=== PATIENT | female | born 1990 | race American Indian/Alaskan Native ===

== ENCOUNTER 2017-05-10 11:37 | Emergency (ER) | payer MEDICAID ==
[2017-05-10 11:55] VITALS: RESP 18
[2017-05-10] MEDS ORDERED: Sodium Chloride 0.9% 1,000 ML IV STA (12:05)
[2017-05-10 12:50] LABS: URINE BILIRUBIN NEGATIVE (NEGATIVE); URINE BLOOD NEGATIVE (NEGATIVE); URINE GLUCOSE (UA) NEGATIVE (NEGATIVE); URINE LEUKOCYTE ESTERASE NEGATIVE Leu/uL (NEGATIVE); URINE NITRATE NEGATIVE (NEGATIVE); URINE PROTEIN NEGATIVE mg/dL (<30 mg/dL); URINE UROBILINOGEN 0.2 E.U./dL (<1 E.U./dL)
[2017-05-10 12:51] LABS: BASO # 0.01 K/mm3 (0.0-2.0); BASO % 0.3 % (0.0-3.0); GRAN # 2.19 (1.4-6.5); GRAN % 57.3 % (50.0-68.0); LYMPH # 1.2 (1.2-3.4); LYMPH % 31.2 % (22.0-35.0); MEAN CELL VOLUME 73.1 fl (80.0-105.0); MEAN CORPUSCULAR HEMOGLOBIN 22.6 pg (25.0-35.0); MEAN CORPUSCULAR HGB CONC 30.9 g/dl (31.0-37.0); MEAN PLATELET VOLUME 9.2 fl (7.0-11.0); MONO # 0.4 (0.1-0.6); MONO % 10.2 % (1.0-6.0); RBC 4.43 10^6/uL (3.5-6.1); RED CELL DISTRIBUTION WIDTH 14.6 % (11.5-14.5); WHITE BLOOD COUNT 3.8 10^3/ul (4.5-11.0)
[2017-05-10 12:58] LABS: URINE APPEARANCE CLEAR (CLEAR); URINE COLOR YELLOW (YELLOW)
[2017-05-10 13:02] LABS: ALB/GLOB RATIO 1.3 (1.1-1.8); ALBUMIN 3.8 g/dL (3.0-4.8); ALT/SGPT 27 U/L (7-56); AST/SGOT 19 U/L (14-36); BLOOD UREA NITROGEN 7 mg/dL (7-21); CALCIUM 8.4 mg/dL (8.4-10.5); GFR AFRICAN-AMERICAN > 60; GFR NON-AFRICAN AMERICAN > 60; LIPASE 43 U/L (23-300)
[2017-05-10 13:19] VITALS: TEMP 98.5
--- NOTE | 2017-05-10 14:03 | ED PDOC ---
Arrival/HPI - General Chief Complaint: GI Problem Time Seen by Provider: 05/10/17 12:05 Historian: Patient - History of Present Illness Narrative History of Present Illness (Text): 05/10/17 12:10 Brett Lowery is a 26 year old who presents to the emergency department complaining of mild nausea and non-bloody diarrhea today. Patient denies any vomiting, change in PO, fever, sick contact, recent travels, or any other complaints at this time. Time/Duration: 4-6 hours Symptom Onset: Gradual Symptom Course: Unchanged Severity Level: Mild Activities at Onset: Light Context: Home Past Medical History - Provider Review Nursing Documentation Reviewed: Yes - Infectious Disease Hx of Infectious Diseases: None - Psychiatric Hx Substance Use: No - Surgical History Hx Section: Yes (x1) Family/Social History - Physician Review Nursing Documentation Reviewed: Yes Family/Social History: No Known Family HX Smoking Status: Light Smoker < 10 Cigarettes Daily Hx Alcohol Use: Yes Frequency of alcohol use: Socially Hx Substance Use: No Allergies/Home Meds Allergies/Adverse Reactions: Allergies No Known Allergies Allergy (Verified 05/10/17 11:55) Home Medications: Home Meds Medication Instructions Recorded Confirmed No Known Home Med 05/10/17 05/10/17 Review of Systems - Physician Review All systems were reviewed & negative as marked: Yes - Review of Systems Constitutional: absent: Fevers, Night Sweats Eyes: absent: Vision Changes ENT: absent: Hearing Changes Respiratory: absent: SOB, Cough Cardiovascular: absent: Chest Pain Gastrointestinal: Diarrhea, Nausea. absent: Abdominal Pain, Vomiting Genitourinary Female: absent: Dysuria, Frequency Musculoskeletal: absent: Arthralgias, Back Pain Skin: absent: Rash, Pruritis Neurological: absent: Headache, Dizziness Endocrine: absent: Diaphoresis Hemo/Lymphatic: absent: Adenopathy Psychiatric: absent: Anxiety, Depression Physical Exam Vital Signs Reviewed: Yes Vital Signs Temp Pulse Resp BP Pulse Ox 05/10/17 14:16 75 18 111/65 100 05/10/17 12:05 98.5 F 77 18 130/86 97 05/10/17 11:52 98.3 F 86 18 113/70 99 Temperature: Afebrile Blood Pressure: Normal Pulse: Regular Respiratory Rate: Normal Appearance: Positive for: Well-Appearing, Non-Toxic, Comfortable Pain Distress: None Mental Status: Positive for: Alert and Oriented X 3 - Systems Exam Head: Present: Atraumatic, Normocephalic Pupils: Present: PERRL Extroacular Muscles: Present: EOMI Conjunctiva: Present: Normal Mouth: Present: Moist Mucous Membranes Neck: Present: Normal Range of Motion Respiratory/Chest: Present: Clear to Auscultation, Good Air Exchange. No: Respiratory Distress, Accessory Muscle Use Cardiovascular: Present: Regular Rate and Rhythm, Normal S1, S2. No: Murmurs Abdomen: Present: Normal Bowel Sounds. No: Tenderness, Distention, Peritoneal Signs Back: Present: Normal Inspection Upper Extremity: Present: Normal Inspection. No: Cyanosis, Edema Lower Extremity: Present: Normal Inspection. No: Edema Neurological: Present: GCS=15, CN II-XII Intact, Speech Normal Skin: Present: Warm, Dry, Normal Color. No: Rashes Psychiatric: Present: Alert, Oriented x 3, Normal Insight, Normal Concentration Medical Decision Making ED Course and Treatment: 05/10/17 14:04 Impression: 26 year old female complaining of mild nausea and non-bloody diarrhea today. Plan: -- Urine Culture -- Pepcid, Zofran, and IV fluids -- Reassess and disposition Progress Notes: - Lab Interpretations Lab Results: 05/10/17 12:38 05/10/17 12:38 Lab Results 05/10/17 12:40: Urine Color Yellow, Urine Appearance Clear, Urine pH 6.0, Ur Specific [place] 1.025, Urine Protein Negative, Urine Glucose (UA) Negative, Urine Ketones Negative, Urine Blood Negative, Urine Nitrate Negative, Urine Bilirubin Negative, Urine Urobilinogen 0.2, Ur Leukocyte Esterase Negative 05/10/17 12:38: Sodium 140, Potassium 3.8, Chloride 106, Carbon Dioxide 22, Anion Gap 15, BUN 7, Creatinine 0.5 L, Est GFR ( Amer) > 60, Est GFR (Non -Af Amer) > 60, Random Glucose 83, Calcium 8.4, Total Bilirubin 0.2, AST 19, ALT 27, Alkaline Phosphatase 53, Total Protein 6.8, Albumin 3.8, Globulin 3.0, Albumin/Globulin Ratio 1.3, Lipase 43 05/10/17 12:38: WBC 3.8 L, RBC 4.43, Hgb 10.0 L, Hct 32.4 L, MCV 73.1 L, MCH 22.6 L, MCHC 30.9 L, RDW 14.6 H, Plt Count 217, MPV 9.2, Gran % 57.3, Lymph % ( Auto) 31.2, [place] % (Auto) 10.2 H, Eos % (Auto) 1.0 L, Baso % (Auto) 0.3, Gran # 2.19, Lymph # 1.2, [place] # 0.4, Eos # 0.0, Baso # 0.01 I have reviewed the lab results: Yes - Medication Orders Current Medication Orders: Discontinued Medications Famotidine (Pepcid) 20 mg IVP STAT STA Stop: 05/10/17 12:06 Last Admin: 05/10/17 12:48 Dose: 20 mg IVP Administration Document 05/10/17 12:48 RG (Rec: 05/10/17 12:51 [id number] Charges for Administration # of IVP Administrations 1 Sodium Chloride (Sodium Chloride 0.9%) 1,000 mls @ 1,000 mls/hr IV .Q1H STA Stop: 05/10/17 13:04 Last Admin: 05/10/17 12:51 Dose: 1,000 mls/hr eMAR Start Stop Document 05/10/17 12:51 RG (Rec: 05/10/17 12:51 [id number]) Intravenous Solution Start Date 05/10/17 Start Time 12:51 Ondansetron HCl (Zofran Inj) 4 mg IVP STAT STA Stop: 05/10/17 12:06 Last Admin: 05/10/17 12:52 Dose: 4 mg IVP Administration Document 05/10/17 12:52 RG (Rec: 05/10/17 12:52 [id number]) Charges for Administration # of IVP Administrations 1 - Scribe Statement The provider has reviewed the documentation as recorded by the Vickie Aly Provider Scribe Attestation: All medical record entries made by the Scribe were at my direction and personally dictated by me. I have reviewed the chart and agree that the record accurately reflects my personal performance of the history, physical exam, medical decision making, and the department course for this patient. I have also personally directed, reviewed, and agree with the discharge instructions and disposition. Disposition/Present on Arrival - Present on Arrival Any Indicators Present on Arrival: No History of DVT/PE: No History of Uncontrolled Diabetes: No Urinary Catheter: No History of Decub. Ulcer: No History Surgical Site Infection Following: None - Disposition Have Diagnosis and Disposition been Completed?: Yes Diagnosis: Enteritis Disposition: HOME/ ROUTINE Disposition Time: 13:00 Condition: IMPROVED Discharge Instructions (ExitCare): Acute Diarrhea (ED) Additional Instructions: Thank you for letting us take care of you today. The emergency medical care you received today was directed at your acute symptoms. If you were prescribed any medication, please fill it and take as directed. It may take several days for your symptoms to resolve. Return to the Emergency Department if your symptoms worsen, do not improve, or if you have any other problems. Please contact your doctor or call one of the physicians/clinics you have been referred to that are listed on the Patient Visit Information form that is included in your discharge packet. Bring any paperwork you were given at discharge with you along with any medications you are taking to your follow up visit. Our treatment cannot replace ongoing medical care by a primary care provider (PCP) outside of the emergency department. Thank you for allowing the [facility] team to be part of your care today. Stay hydrated by taking small amounts of liquid throughout the day. You can take imodium (over the counter) if diarrhea persists. Follow up with your primary doctor in 2-3 days for re-evaluation and further management. Referrals: [facility] Gilda Victoria, [Non-Staff] - Follow up with primary Forms: [employer] (Setswana)
[2017-05-10 14:17] VITALS: BP 111/65; PULSE 75; O2SAT 100
== END 2017-05-10 13:53 | disposition home or self-care (01) ==
LOC: ED 11:37
DX: K52.9 Noninfective gastroenteritis and colitis, unspecified (principal)
CPT/HCPCS: 80053; 81003; 83690; 85025; 87086; 96374; 96375; 99284; J2405; J7040

== ENCOUNTER 2017-08-09 11:44 | Emergency (ER) | payer OTHER, MEDICAID ==
[2017-08-09 11:54] VITALS: BP 100/67; PULSE 92; RESP 18; TEMP 97.9; O2SAT 100
--- NOTE | 2017-08-09 12:17 | ED PDOC ---
Arrival/HPI - General Chief Complaint: Back Pain Time Seen by Provider: 08/09/17 12:03 Historian: Patient - History of Present Illness Narrative History of Present Illness (Text): 08/09/17 12:04 A 26 year old female, with no significant past medical history, presents to the emergency department complaining of lower back pain for 5 days. Patient reports back pain occurred after bending down and pulling back muscle. States pain worsens with movement and sneezing. Pain radiates down right leg. Notes having similar problem in the past. Patient denies any dysruia, hematuria, urinary output changes, or any other complaints at this time. PMD: Dr. Raul Aguilarfour Time/Duration: < week (5 days) Symptom Onset: Sudden Symptom Course: Unchanged Past Medical History - Provider Review Nursing Documentation Reviewed: Yes - Infectious Disease Hx of Infectious Diseases: None - Psychiatric Hx Substance Use: No - Surgical History Hx Section: Yes (x1) Family/Social History - Physician Review Nursing Documentation Reviewed: Yes Family/Social History: No Known Family HX Smoking Status: Light Smoker < 10 Cigarettes Daily Hx Alcohol Use: Yes Hx Substance Use: No Allergies/Home Meds Allergies/Adverse Reactions: Allergies No Known Allergies Allergy (Verified 08/09/17 11:54) Review of Systems - Physician Review All systems were reviewed & negative as marked: Yes - Review of Systems Genitourinary Female: absent: Dysuria, Hematuria, Urine Output Changes Musculoskeletal: Back Pain (lower) Physical Exam Vital Signs Reviewed: Yes Vital Signs Temp Pulse Resp BP Pulse Ox 08/09/17 11:51 97.9 F 92 H 18 100/67 100 08/09/17 11:44 97.9 F 90 18 100/70 99 Temperature: Afebrile Blood Pressure: Normal Pulse: Regular Respiratory Rate: Normal Appearance: Positive for: Well-Appearing Pain Distress: None Mental Status: Positive for: Alert and Oriented X 3 - Systems Exam Neck: Present: Normal Range of Motion Respiratory/Chest: Present: Clear to Auscultation, Good Air Exchange. No: Respiratory Distress, Accessory Muscle Use Cardiovascular: Present: Regular Rate and Rhythm, Normal S1, S2. No: Murmurs Abdomen: No: Tenderness, Distention, Peritoneal Signs Back: Present: Other (lower lumbar tenderness bilaterally). No: Midline Tenderness Lower Extremity: Present: Other (pain to right leg; right leg raise 45 degrees) Neurological: Present: GCS=15, CN II-XII Intact, Speech Normal. No: Other (no ataxia when ambulating) Skin: Present: Warm, Dry, Normal Color. No: Rashes Psychiatric: Present: Alert, Oriented x 3, Normal Insight, Normal Concentration Medical Decision Making ED Course and Treatment: 08/09/17 12:08 Impression: 26 year old female with lower back pain. Physical exam shows lower lumbar tenderness bilaterally, no midline tenderness; pain radiates to right leg , right leg raise pain 45 degrees; no ataxia while ambulating. Differential Diagnosis included but are not limited to: Musculoskeletal vs. Sciatica Plan: -- Flexeril -- Toradol -- Reassess and disposition Progress Notes: Patient felt better after medications. She has her friend who will take her home. She was advised to return to the ED if symptoms worsen or any other concern. - Medication Orders Current Medication Orders: Discontinued Medications Cyclobenzaprine HCl (Flexeril) 5 mg PO STAT STA Stop: 08/09/17 12:09 Last Admin: 08/09/17 12:31 Dose: 5 mg Ketorolac Tromethamine (Toradol) 60 mg IM STAT STA Stop: 08/09/17 12:09 Last Admin: 08/09/17 12:31 Dose: 60 mg MAR Pain Assessment Document 08/09/17 12:31 LA (Rec: 08/09/17 12:32 LA [id number]) Pain Reassessment Is this a pain reassessment? No Sleep Is patient sleeping during reassessment? No Presence of Pain Presence of Pain Yes Pain Scale Used Pain Scale Used Numeric Location Pain Location Body Site Back Description Description Constant IM Administration Charges Document 08/09/17 12:31 LA (Rec: 08/09/17 12:32 LA [id number]) Injection Site MAR Injection Site Right Gluteus Eder Charges for Administration # of IM Administrations 1 - Scribe Statement The provider has reviewed the documentation as recorded by the Vickie Joseph Provider Scribe Attestation: All medical record entries made by the Scribe were at my direction and personally dictated by me. I have reviewed the chart and agree that the record accurately reflects my personal performance of the history, physical exam, medical decision making, and the department course for this patient. I have also personally directed, reviewed, and agree with the discharge instructions and disposition. Disposition/Present on Arrival - Present on Arrival Any Indicators Present on Arrival: No History of DVT/PE: No History of Uncontrolled Diabetes: No Urinary Catheter: No History of Decub. Ulcer: No History Surgical Site Infection Following: None - Disposition Have Diagnosis and Disposition been Completed?: Yes Diagnosis: Back pain Disposition: HOME/ ROUTINE Disposition Time: 12:08 Patient Plan: Discharge Condition: IMPROVED Discharge Instructions (ExitCare): Low Back Pain (DC) Additional Instructions: Sebastián, thank you for letting us take care of you today. Your provider was Dr. Martinez. You were treated for Low Back pain. The emergency medical care you received today was directed at your acute symptoms. If you were prescribed any medication, please fill it and take as directed. It may take several days for your symptoms to resolve. Return to the Emergency Department if your symptoms worsen, do not improve, or if you have any other problems. Please contact your doctor or call one of the physicians/clinics you have been referred to that are listed on the Patient Visit Information form that is included in your discharge packet. Bring any paperwork you were given at discharge with you along with any medications you are taking to your follow up visit. Our treatment cannot replace ongoing medical care by a primary care provider (PCP) outside of the emergency department. Thank you for allowing the [facility] team to be part of your care today. If you had an X-Ray or CT scan: A Radiologist will review the ED reading if any change in treatment is needed we will contact you. If you had a blood, urine, or wound culture: It will take several days for the results, if any change in treatment is needed we will contact you. If you had an STI test: It will take 48 hours for the results. Please call after 1 week if you have not heard back. Prescriptions: Cyclobenzaprine [Flexeril] 5 mg PO TID PRN #20 tab PRN Reason: Muscle Spasm Ibuprofen [Motrin] 600 mg PO Q6 PRN #30 tab PRN Reason: Pain, Moderate (4-7) Referrals: Raul Sharif [Primary Care Provider] - Follow up with primary Forms: [employer] (Malaysian), WORK NOTE
== END 2017-08-09 12:38 | disposition home or self-care (01) ==
LOC: ED 11:44
DX: M54.5 Low back pain (principal); F17.210 Nicotine dependence, cigarettes, uncomplicated
CPT/HCPCS: 96372; 99283; J1885